=== PATIENT | female | born 1985 | race Caucasian/White ===

== ENCOUNTER 2017-10-07 12:25 | Emergency (ER) | payer SELFPAY ==
[~2017-10-07] VITALS: Ht 152.4 cm; Wt 43.5 kg
[2017-10-07 12:30] VITALS: BP 144/90
[2017-10-07] MEDS ORDERED: MOTRIN600 MG PO (13:21)
[2017-10-07] MEDS ORDERED: PREDNISONE10 M1 PO (13:21)
[2017-10-07] MEDS ORDERED: VALIUM2 MG PO (13:21)
== END 2017-10-07 13:28 | disposition home or self-care (01) ==
LOC: EME 12:25
DX: M54.5 Low back pain (principal); M79.604 Pain in right leg; R20.2 Paresthesia of skin; Z98.51 Tubal ligation status; F17.200 Nicotine dependence, unspecified, uncomplicated
CPT/HCPCS: 99281; 99285; J7512